=== PATIENT | male | born 1985 | race Two or more races ===

== ENCOUNTER → 2017-04-23 | Outpatient (CLI) | payer OTHER ==
--- NOTE | 2017-04-23 14:12 | REP ---
Clinical: Trauma. Technique: AP, lateral, bilateral oblique views of the left fifth toe. Findings: A subtle transverse nondisplaced fracture of the distal phalanx is suspected. No subcutaneous emphysema or radiodense foreign body. Impression: Transverse nondisplaced fracture of the distal phalanx suspected. Signed by Rick Tapia MD 04/23/2017 02:03 P
== END ==
LOC: M LRY 13:35
PROVIDERS: ATTEND Nurse Practitioner Family
DX: S99.922A Unspecified injury of left foot, initial encounter (principal); W18.30XA Fall on same level, unspecified, initial encounter; Y92.009 Unspecified place in unspecified non-institutional (private) residence as the place of occurrence of the external cause